=== PATIENT | male | born 1980 | race Two or more races ===

== ENCOUNTER 2018-07-29 22:14 | Emergency (ER) | payer SELFPAY ==
[~2018-07-29] VITALS: Ht 177.8 cm; Wt 95.3 kg
[2018-07-29] MEDS ORDERED: IBUPROFEN 600 MG TABLET. PO ONE (23:00)
[2018-07-29 23:16] LABS: INFLUENZA A PATIENT NEGATIVE (NEGATIVE); INFLUENZA B PATIENT NEGATIVE (NEGATIVE)
--- NOTE | 2018-07-29 23:50 | PHYS DOC ---
Past Medical History Past Medical History: No Pertinent History Past Surgical History: No Surgical History Alcohol Use: Occasionally Drug Use: None Adult General Chief Complaint Chief Complaint: FLU SYMPTOM HPI HPI Patient is a 38 year old male who presents with body aches, chills, nasal congestion and sinus pain since this morning. He rates his generalized body aches 8 out of 10. He states he has not taken any medications. He takes no medications daily has no past medical history, no surgeries. He has no known drug allergies. His temperature is 99.0. Alert and oriented. Review of Systems Review of Systems Constitutional: Denies fever. Chills [] Eyes: Denies change in visual acuity, redness, or eye pain [] HENT: Nasal congestion and sore throat [] Respiratory: Denies cough or shortness of breath [] Cardiovascular: No additional information not addressed in HPI [] GI: Denies abdominal pain, nausea, vomiting, bloody stools or diarrhea [] : Denies dysuria or hematuria [] Musculoskeletal: Generalized body aches. Denies back pain or joint pain [] Integument: Denies rash or skin lesions [] Neurologic: Denies headache, focal weakness or sensory changes [] All other systems were reviewed and found to be within normal limits, except as documented in this note. Current Medications Current Medications Current Medications Medications (Trade) Dose Ordered Sig/[facility] Start Time Stop Time Status Last Admin Dose Admin Ibuprofen (Motrin) 600 mg 1X ONCE 07/29/18 23:00 07/29/18 23:01 DC 07/29/18 23:18 600 MG Allergies Allergies Allergies Coded Allergies Type Severity Reaction Last Updated Verified No Known Drug Allergies 07/29/18 No Physical Exam Physical Exam Constitutional: Well developed, well nourished, no acute distress, non-toxic appearance. [] HENT: Normocephalic, atraumatic, bilateral external ears normal, oropharynx moist, no oral exudates, nose normal. [] Eyes: PERRLA, EOMI, conjunctiva normal, no discharge. [] Neck: Normal range of motion, no tenderness, supple, no stridor. [] Cardiovascular:Heart rate regular rhythm, no murmur [] Lungs & Thorax: Bilateral breath sounds clear to auscultation [] Abdomen: Bowel sounds normal, soft, no tenderness, no masses, no pulsatile masses. [] Skin: Warm, dry, no erythema, no rash. [] Back: No tenderness, no CVA tenderness. [] Extremities: No tenderness, no cyanosis, no clubbing, ROM intact, no edema. [] Neurologic: Alert and oriented X 3, normal motor function, normal sensory function, no focal deficits noted. [] Psychologic: Affect normal, judgement normal, mood normal. [] Current Patient Data Vital Signs Vital Signs Date Time Temp Pulse Resp B/P (MAP) Pulse Ox O2 Delivery O2 Flow Rate FiO2 07/29/18 22:29 99.0 102 20 106/63 (77) 97 Room Air 99.0 Lab Values Laboratory Tests Test 07/29/18 22:45 Influenza Type A Antigen Negative (NEGATIVE) Influenza Type B Antigen Negative (NEGATIVE) EKG EKG [] Radiology/Procedures Radiology/Procedures [] Course & Med Decision Making Course & Med Decision Making Patient is a 38 year old male who presents with body aches, chills, nasal congestion and sinus pain since this morning. He rates his generalized body aches 8 out of 10. He states he has not taken any medications. He takes no medications daily has no past medical history, no surgeries. He has no known drug allergies. His temperature is 99.0. Alert and oriented. Clear to auscultation all lobes. Heart rate is regular without murmur. Throat is pink and no exudates. Bilateral ear tympanic are pearly white. No lymph nodes are palpable. Strep is negative, flu is negative. Patient is given a dose of ibuprofen. Patient's is to follow-up with his primary care. He can take ibuprofen or Tylenol for his pain and fever. Patient should follow up with a primary care doctor the next 4 days especially if he is not feeling any better. [] Dragon Disclaimer Dragon Disclaimer This electronic medical record was generated, in whole or in part, using a voice recognition dictation system. Departure Departure Impression: Primary Impression: Viral respiratory illness Disposition: 01 HOME, SELF-CARE Condition: STABLE Referrals: NO PCP (PCP) Patient Instructions: Upper Respiratory Infection, Adult Additional Instructions: Follow-up with her primary care provider within the next 4 days or she denied any better. Use [id number] cold medication. Take Tylenol or ibuprofen for ear pain or fever. JUSTIN PERRIN [employer] Jul 29, 2018 23:50
[2018-07-30 00:10] VITALS: BP 134/80
== END 2018-07-30 00:22 | disposition home or self-care (01) ==
LOC: ER 22:14
DX: J98.8 Other specified respiratory disorders (principal); R68.83 Chills (without fever); M79.10 Myalgia, unspecified site
CPT/HCPCS: 87070; 87804; 87880; 99284